=== PATIENT | male | born 1970 | race African-American/Black ===

== ENCOUNTER 2018-08-10 09:48 | Emergency (ER) | payer MEDICAID ==
[~2018-08-10] VITALS: Ht 165.1 cm; Wt 58.1 kg
[2018-08-10 10:17] VITALS: BP_SYST 127
[2018-08-10] MEDS ORDERED: ONDANSETRON 4 MG ODT TAB PO ONE (11:45)
[2018-08-10] MEDS ORDERED: IBUPROFEN 800 MG TABLET PO ONE (11:45)
[2018-08-10 12:37] LABS: RED BLOOD CELL COUNT(AUTO) 4.14 MIL/uL (4.2-6.2); WHITE BLOOD COUNT (AUTO) 7.5 K/uL (4.8-10.8)
[2018-08-10 12:38] LABS: BASOPHILS % (AUTO) 0.5 % (0.0-2.0); HEMATOCRIT 37.6 % (36-54); HEMOGLOBIN 12.7 g/dL (14.0-18.0); LYMPHOCYTES # (AUTO) 0.1 K/uL (1.0-5.5); LYMPHOCYTES % (AUTO) 1.5 % (20.5-51.5); MEAN CORPUSCULAR HEMOGLOBIN 31 pg (27-31); MEAN CORPUSCULAR HGB CONC 34 % (32-36); MEAN CORPUSCULAR VOLUME 91 fL (79.0-98.0); MONOCYTES # (AUTO) 0.4 K/uL (0.0-1.0); MONOCYTES % (AUTO) 5.9 % (1.7-9.3); NEUTROPHILS # (AUTO) 6.9 K/uL (1.8-7.7); NEUTROPHILS % (AUTO) 92.1 % (40.0-70.0); PLATELET COUNT (AUTO) 275 K/uL (130-430); RED CELL DISTRIBUTION WIDTH 15.1 % (9.0-15.0)
[2018-08-10 12:51] LABS: CALCIUM 8.9 mg/dL (8.4-11.0)
[2018-08-10 12:55] LABS: ALBUMIN 3.8 g/dL (3.4-4.8); TOTAL BILIRUBIN 0.6 mg/dL (0.0-1.0)
[2018-08-10 12:59] LABS: PROTHROMBIN TIME 10.6 SECS (9.5-12.5)
[2018-08-10] MEDS ORDERED: POTASSIUM CHLORIDE 20 MEQ/PKT PACKET PO ONE (13:30)
[2018-08-10 14:39] VITALS: BP_SYST 118
== END 2018-08-10 14:39 | disposition home or self-care (01) ==
LOC: SED 09:48
DX: J40 Bronchitis, not specified as acute or chronic (principal); R10.9 Unspecified abdominal pain; R50.9 Fever, unspecified; I10 Essential (primary) hypertension
CPT/HCPCS: 36415; 71045; 74176; 80053; 82150; 83605; 83615; 83690; 84145; 85025; 85610; 85730; 99284; Q0162

== ENCOUNTER 2019-03-15 18:31 | Emergency (ER) | payer MEDICAID ==
[~2019-03-15] VITALS: Ht 165.1 cm; Wt 56.7 kg
[2019-03-15 18:35] VITALS: BP_SYST 120
[2019-03-15 19:15] LABS: BASOPHILS % (AUTO) 0.5 % (0.0-2.0); EOSINOPHILS # (AUTO) 0.2 K/uL (0.0-0.4); HEMATOCRIT 40.2 % (36-54); HEMOGLOBIN 13.7 g/dL (14.0-18.0); LYMPHOCYTES # (AUTO) 2.3 K/uL (1.0-5.5); LYMPHOCYTES % (AUTO) 29.8 % (20.5-51.5); MEAN CORPUSCULAR HEMOGLOBIN 32 pg (27-31); MEAN CORPUSCULAR HGB CONC 34 % (32-36); MEAN CORPUSCULAR VOLUME 93 fL (79.0-98.0); MONOCYTES # (AUTO) 0.3 K/uL (0.0-1.0); MONOCYTES % (AUTO) 3.9 % (1.7-9.3); NEUTROPHILS # (AUTO) 4.8 K/uL (1.8-7.7); NEUTROPHILS % (AUTO) 63.8 % (40.0-70.0); PLATELET COUNT (AUTO) 338 K/uL (130-430); RED CELL DISTRIBUTION WIDTH 14.2 % (9.0-15.0); WHITE BLOOD COUNT (AUTO) 7.6 K/uL (4.8-10.8)
[2019-03-15 19:24] LABS: CALCIUM 8.9 mg/dL (8.4-11.0); CREATININE 1.06 mg/dL (0.55-1.30); POTASSIUM 3.6 mmol/L (3.5-5.1)
[2019-03-15 19:31] LABS: ALBUMIN 3.8 g/dL (3.4-4.8); TOTAL BILIRUBIN 0.3 mg/dL (0.0-1.0)
[2019-03-15 20:24] LABS: PROTHROMBIN TIME 9.8 SECS (9.5-12.5)
--- NOTE | 2019-03-15 21:25 | NUR ---
Called pt x 3, no answer
--- NOTE | 2019-03-15 21:25 | NUR ---
Patient left without being seen. No further treatment provided. ER MD aware
== END 2019-03-15 21:25 | disposition left against medical advice (07) ==
LOC: SED 18:31
DX: R06.02 Shortness of breath (principal); Z53.21 Procedure and treatment not carried out due to patient leaving prior to being seen by health care provider
CPT/HCPCS: 36415; 71045; 80053; 82550; 83880; 84484; 85025; 85379; 85610; 99281; G0482

== ENCOUNTER 2021-11-16 13:22 | Emergency (ER) | payer MEDICAID ==
[~2021-11-16] VITALS: Ht 162.6 cm; Wt 54.9 kg
--- NOTE | 2021-11-16 13:22 | NUR ---
BROUGHT TO AMBULANCE RAMP AND TRIAGED. WILL ASSUME CARE.
--- NOTE | 2021-11-16 13:30 | NUR ---
PT STATES HE WAS AT [facility] THIS AM AND TESTED + FOR COVID, NOW STATES HE HAS NUMBNESS TO BILATERAL ARMS. NO OTHER COMPLAINTS
[2021-11-16 13:42] VITALS: BP_SYST 123
--- NOTE | 2021-11-16 14:05 | NUR ---
SING OUT TO EVALUATE PT.
[2021-11-16 15:36] LABS: CALCIUM 9.3 mg/dL (8.4-11.0); CREATININE 1.27 mg/dL (0.55-1.30); POTASSIUM 4.9 mmol/L (3.5-5.1)
[2021-11-16 15:42] LABS: TOTAL BILIRUBIN 0.4 mg/dL (0.0-1.0)
[2021-11-16] MEDS ORDERED: NACL 0.9% 1,000 ML IV ONE (16:15)
--- NOTE | 2021-11-16 16:15 | NUR ---
Placed in room 8 . Placed on satellite project site monitor, blood pressure machine and pulse oximeter. To gown for exam. Side rails up.
--- NOTE | 2021-11-16 16:30 | NUR ---
# 20 gauge angiocath placed to RAC. Use of asceptic technique. Opsite placed over site. Blood return noted. Flushed with 10 cc of normal saline. No evidence of infiltration noted. Patient tolerated well.
[2021-11-16 17:28] VITALS: BP_SYST 119
== END 2021-11-16 17:28 | disposition home or self-care (01) ==
LOC: SED 13:22
DX: U07.1 COVID-19 (principal); E87.1 Hypo-osmolality and hyponatremia; R20.2 Paresthesia of skin; I10 Essential (primary) hypertension
CPT/HCPCS: 36415; 70450; 76376; 80053; 96360; 99284; J7030

== ENCOUNTER 2021-11-27 13:33 | Emergency (ER) | payer MEDICAID ==
[~2021-11-27] VITALS: Ht 157.5 cm; Wt 65.8 kg
[2021-11-27 13:33] VITALS: BP_SYST 163
--- NOTE | 2021-11-27 13:33 | NUR ---
BROUGHT IN TO BED #8 AND TRIAGED, REPORT GIVEN TO ANIBAL
--- NOTE | 2021-11-27 13:45 | NUR ---
PT STATES HE WAS COVID + ON 11/16 AND STATES HE WOKE UP TODAY WITH SLIGHT SOB, HEART RACING. PT STATES NO DRUG INVOLVED BUT +ETOH. PT STATES HE DOES NOT DRINK ENERGY DRINKS, STATES HE WAS IN ISOLATION FOR 5 DAYS AND WAS FEELING BETTER. PT SPEAKING FULL SENTENCES, NO S/S OF DISTRESS, LAUGHING WITH STAFF. DENIES FEVERS OR DISCOMFORT.
--- NOTE | 2021-11-27 14:30 | NUR ---
DR WILLOUGHBY AT BEDSIDE FOR EVALUATION
--- NOTE | 2021-11-27 14:57 | NUR ---
EKG DONE AND GIVEN TO DR WILLOUGHBY
--- NOTE | 2021-11-27 15:11 | NUR ---
CORPORATE GIVING MANAGER AT BEDSIDE DRAWING BLOOD
--- NOTE | 2021-11-27 15:20 | NUR ---
DR WILLOUGHBY IN TO SPEAK WITH PT.
[2021-11-27 15:35] LABS: BASOPHILS # (AUTO) 0.1 K/uL (0.0-0.2); EOSINOPHILS % (AUTO) 0.3 % (0.0-4.0); HEMATOCRIT 37.5 % (36-54); HEMOGLOBIN 12.9 g/dL (14.0-18.0); LYMPHOCYTES # (AUTO) 0.9 K/uL (1.0-5.5); MEAN CORPUSCULAR HGB CONC 34 % (32-36); MONOCYTES # (AUTO) 0.4 K/uL (0.0-1.0); NEUTROPHILS # (AUTO) 9.4 K/uL (1.8-7.7); NEUTROPHILS % (AUTO) 86.9 % (40.0-70.0)
[2021-11-27 15:36] LABS: ANION GAP 13 (5-15); CALCIUM 8.7 mg/dL (8.4-11.0); CHLORIDE 100 mmol/L (98-107); CREATININE 0.94 mg/dL (0.55-1.30); GLUCOSE 86 mg/dL (70-99); POTASSIUM 4.5 mmol/L (3.5-5.1); SODIUM SERUM 136 mmol/L (136-145); UREA NITROGEN, BLOOD 13 mg/dL (8-21)
[2021-11-27 15:45] LABS: BASOPHILS % (AUTO) 0.5 % (0.0-2.0); LYMPHOCYTES % (AUTO) 8.3 % (20.5-51.5); MEAN CORPUSCULAR HEMOGLOBIN 31 pg (27-31); MEAN CORPUSCULAR VOLUME 90 fL (79.0-98.0); PLATELET COUNT (AUTO) 568 K/uL (130-430); RED BLOOD CELL COUNT(AUTO) 4.16 MIL/uL (4.2-6.2); RED CELL DISTRIBUTION WIDTH 13.4 % (9.0-15.0); WHITE BLOOD COUNT (AUTO) 10.9 K/uL (4.8-10.8)
[2021-11-27 15:48] LABS: GFR AFRICAN AMERICAN 110 mL/min (>90)
[2021-11-27 15:50] LABS: ALANINE AMINOTRANSFERASE 37 U/L (12-78); ALBUMIN 3.5 g/dL (3.4-4.8); ASPARTATE AMINOTRANSFERASE 34 U/L (10-37); TOTAL BILIRUBIN 0.1 mg/dL (0.0-1.0)
[2021-11-27] MEDS ORDERED: LORazepam 1 MG TABLET PO ONE (16:30)
[2021-11-27] MEDS ORDERED: ACETAMINOPHEN 500 MG TABLET PO ONE (16:30)
[2021-11-27] MEDS ORDERED: NACL 0.9% 1,000 ML IV ONE (16:30)
[2021-11-27 17:17] LABS: FIBRINOGEN 352 mg/dL (200-400)
--- NOTE | 2021-11-27 17:30 | NUR ---
IV FLUID STARTED AT 1630 AND ENDED AT 1730
[2021-11-27 17:56] VITALS: BP_SYST 163
--- NOTE | 2021-11-27 17:57 | NUR ---
Patient given written and verbal discharge instructions and verbalizes understanding. ER MD discussed with patient the results and treatment provided. Patient in stable condition. ID arm band removed. NO Rx given. Patient educated on pain management and to follow up with PMD. Pain Scale 0/10. Opportunity for questions provided and answered. Medication side effect fact sheet provided.
== END 2021-11-27 17:57 | disposition home or self-care (01) ==
LOC: SED 13:33
DX: R00.2 Palpitations (principal); R06.02 Shortness of breath; I10 Essential (primary) hypertension; Z79.899 Other long term (current) drug therapy
CPT/HCPCS: 99284; 96360; 71045; 80053; 82550; 85025; 85379; 85384; 84484; 36415; 93005; 36600; 82803; 83605; J7030

== ENCOUNTER 2021-12-30 05:23 | Emergency (ER) | payer MEDICAID ==
[~2021-12-30] VITALS: Ht 165.1 cm; Wt 56.7 kg
[2021-12-30 05:23] VITALS: BP_SYST 120
--- NOTE | 2021-12-30 05:26 | NUR ---
Patient triaged and placed in waiting room. VSS and patient appears in no acute distress at this time. Accompanied by SELF, awaiting available bed, and MD notified of need for MSE.
--- NOTE | 2021-12-30 05:40 | NUR ---
PT STATES THAT HE AWOKE TO USE RESTROOM AND FELT THAT HIS HEART WAS RACING WITH DIFFICULTY BREATHING. PT SPEAKING FULL SENTENCES WITHOUT DIFFICULTY. DENIES ANY CHEST PAIN.
--- NOTE | 2021-12-30 06:28 | NUR ---
DR ACUNA OUT TO TRIAGE ROOM TO EVALUATE PT.
[2021-12-30] MEDS ORDERED: LIB25 PO (06:57)
[2021-12-30 07:28] VITALS: BP_SYST 134
--- NOTE | 2021-12-30 07:29 | NUR ---
Patient given written and verbal discharge instructions and verbalizes understanding. ER MD discussed with patient the results and treatment provided. Patient in stable condition. ID arm band removed. Rx of Librium given. Patient educated on pain management and to follow up with PMD. Pain Scale 0/10. Opportunity for questions provided and answered. Medication side effect fact sheet provided.
== END 2021-12-30 07:28 | disposition home or self-care (01) ==
LOC: SED 05:23
DX: F10.239 Alcohol dependence with withdrawal, unspecified (principal); I10 Essential (primary) hypertension; Z79.899 Other long term (current) drug therapy
CPT/HCPCS: 93005; 99283